=== PATIENT | male | born 1980 | race Caucasian/White ===

== ENCOUNTER 2022-01-23 09:07 | Outpatient (CLI) | payer BC, SELFPAY ==
--- NOTE | ~2022-01-23 | MR_ITS ---
EXAMINATION: MR shoulder RT wo con DATE: 01/23/2022 09:59 INDICATION: Right shoulder pain. TECHNIQUE: Magnetic resonance imaging (MRI) of the right shoulder was performed without intravenous c ontrast. Sequences included axial PD-weighted FS FSE, coronal oblique PD-weighted FS FSE and T2-weigh deepa FS FSE, and sagittal oblique T2-weighted FS FSE and T1-weighted FSE. COMPARISON: None. FINDINGS: Coracoacromial arch: The acromion undersurface is curved in morphology (type II). There is severe acromioclavicular joint osteoarthritis including inferiorly directed osteophytes. There is mild subacromial/subdeltoid bursit is. Rotator cuff: There is moderate supraspinatus tendinopathy and mild infraspinatus tendinopathy. Teres minor tendon is normal. There is mild subscapularis tendinopathy. There is mild fatty atrophy of teres minor muscl e belly. Biceps tendon and glenoid labrum: Biceps tendon is in bicipital groove. There is mild intra-articular biceps tendinopathy. There is a t ear of posterior labrum with 6 mm paralabral cyst. Fluid: There is a small glenohumeral joint effusion. Bones/cartilage: There is deep partial thickness cartilage loss of glenoid and humeral head with mild subchondral ivana a-like marrow signal intensity. There are large osteophytes of humeral head. IMPRESSION: 1. Moderate glenohumeral joint chondrosis. 2. Severe acromioclavicular joint osteoarthritis. 3. Moderate rotator cuff tendinopathy. No tear. 4. Small glenohumeral joint effusion. 5. Mild intra-articular biceps tendinopathy. 6. Mild subacromial/subdeltoid bursitis. 7. Mild fatty atrophy of teres minor muscle belly, which may be seen with quadrilateral space syndrom e. Reviewed, dictated and finalized at location A. [employer] IMPRESSION: 1. Moderate glenohumeral joint chondrosis. 2. Severe acromioclavicular joint osteoarthritis. 3. Moderate rotator cuff tendinopathy. No tear. 4. Small glenohumeral joint effusion. 5. Mild intra-articular biceps tendinopathy. 6. Mild subacromial/subdeltoid bursitis. 7. Mild fatty atrophy of teres minor muscle belly, which may be seen with quadr ilateral space syndrome.
== END 2022-01-23 09:08 | disposition home or self-care (01) ==
PROVIDERS: PCP Family Medicine
DX: M19.011 Primary osteoarthritis, right shoulder (principal); M75.51 Bursitis of right shoulder; M25.411 Effusion, right shoulder
CPT/HCPCS: 73221